=== PATIENT | male | born 1985 | race Hispanic/Latino ===

== ENCOUNTER 2025-02-04 17:11 | Emergency (ER) | payer SELFPAY ==
[2025-02-04] VITALS (11 sets, daily range): BP systolic 96–140; BP diastolic 57–92
[~2025-02-04] VITALS: Ht 152.4 cm; Wt 57.0 kg
[2025-02-04] MEDS ORDERED: SODIUM CHLORIDE 0.9% 1,000 ML IV ONE (17:25)
[2025-02-04] MEDS ORDERED: Diph, Acellular Pertussis, Tet 0.5 ML/VIAL (Tdap) SDV IM ONE (17:25)
[2025-02-04 17:53] LABS: BASO% 0.9 % (0-3); EOS% 5.3 % (0-8); HEMATOCRIT 42.9 % (39.0-50.0); HEMOGLOBIN 14.6 g/dl (14.0-18.0); IMMATURE GRANULOCYTES 0.3 % (0.0-5.0); LYMPH% 40.6 % (15-41); MEAN CELL VOLUME 97.1 fL CALC (80.0-100.0); NEUT# 3.3 thou/uL (1.82-7.42); NEUT% 46.9 % (42-76); RED BLOOD COUNT 4.42 mill/uL (4.70-6.10); RED CELL DISTRI WIDTH 11.8 % (11.5-15.5)
[2025-02-04 18:01] LABS: ALBUMIN 4.7 g/dL (3.2-5.0); BILIRUBIN, TOTAL 0.4 mg/dL (0.2-1.3); CREATININE 0.7 mg/dL (0.7-1.3); POTASSIUM 3.8 mmol/l (3.5-5.1); TOTAL PROTEIN 8.2 g/dL (6.3-8.2)
[2025-02-04 18:32] LABS: URINE BILIRUBIN - DIPSTICK Negative (NEGATIVE); URINE BLOOD DIPSTICK Trace-intact (NEGATIVE); URINE GLUCOSE - DIPSTICK Negative (NEGATIVE); URINE KETONE Negative (NEGATIVE); URINE LEUK ESTERASE Negative (NEGATIVE); URINE NITRITE - DIPSTICK Negative (Negative); URINE PROTEIN - DIPSTICK Negative (NEG-TRACE); URINE SPECIFIC GRAVITY <=1.005; URINE UROBILINOGEN - DIPSTICK 0.2 E.U./dL (0.2)
[2025-02-04 18:33] LABS: URINE COLOR Light yellow
[2025-02-05] VITALS: BP 95/50
[2025-02-05 02:00] VITALS: BP 104/66
[2025-02-05 04:00] VITALS: BP 106/68
[2025-02-05 06:01] VITALS: BP 124/89
[2025-02-05 08:00] VITALS: BP 138/90
[2025-02-05 08:37] VITALS: BP 138/90
== END 2025-02-05 08:38 | disposition home or self-care (01) | DRG 897 ==
LOC: ED 17:11
PROVIDERS: Nurse Practitioner
DX: F10.129 Alcohol abuse with intoxication, unspecified (principal); Y90.8 Blood alcohol level of 240 mg/100 ml or more; S00.81XA Abrasion of other part of head, initial encounter; S60.413A Abrasion of left middle finger, initial encounter; W19.XXXA Unspecified fall, initial encounter; Y92.524 Gas station as the place of occurrence of the external cause
CPT/HCPCS: 90715